=== PATIENT | female | born 1975 | race Caucasian/White ===

== ENCOUNTER 2016-10-11 18:41 | Emergency (ER) | payer BC ==
[~2016-10-11 18:41] MED LIST: ACID CONTROL20 MG PO; ADVIL200 MG; ALBUTEROL17 GM INH; AMOXICILLIN875 MG PO; ATIVAN0.5 MG; ATIVAN1 MG PO; BUSPIRONE HCL30 M1 PO; CELEBREX200 MG; COMPAZINE5 MG; DILAUDID2 MG PO; DULCOLAX10 MG RC; EFFEXOR XR75 MG; EFFEXOR75 MG; EXCEDRIN EXTRA1 EAC2 PO; EXCEDRIN EXTRA1 EAC4 PO; EXCEDRIN MIGRAI1 TAB; EXCEDRIN MIGRAI1 TAB PO; FENTANYL1 PATCH; FOLIC ACID0.8 MG PO; LEVAQUIN750 MG; LEXAPRO20 MG PO; LUNESTA; NASONEX17 GM; NEURONTIN300 MG; NOLVADEX20 MG; NORCO 5/325 TAB1 TAB PO; PEPCID AC10 MG; PERCOCET 5-3251 EACH PO; PERCOCET 5/3251 TAB; PERCOCET 5/3251 TAB PO; PHENERGAN25 MG; PHENERGAN25 MG/SUPP RC; PRENATAL1 EACH PO; PRISTIQ ER100 MG PO; PROTONIX40 MG PO; PROZAC20 MG; SEROQUEL25 M2 PO; SURFAK240 M2 PO; SYMBICORT 16010.2 GM; TRAZODONE50 MG PO; TRINESSA1 TAB; VICODIN 5/500 T1 TAB; VISTARIL50 MG PO; XANAX XR0.5 M1 PO; XANAX0.25 MG PO; ZOFRAN ODT4 MG/UDTAB PO; ZOFRAN4 M2 PO; ZOFRAN4 MG PO; ZOFRAN8 MG; [UNRECOGNIZED DRUG - OTHER]
[2016-10-11] MEDS ORDERED: KEFLEX500 M4 PO (21:45)
[2016-10-11] MEDS ORDERED: NORCO 5-325 TA1 EACH PO (21:49)
== END 2016-10-11 21:49 ==
LOC: EDMED 18:41
PROC: 0HQGXZZ Repair Left Hand Skin, External Approach (ICD-10-PCS; principal; 2016-10-11)
DX: S61.211A Laceration without foreign body of left index finger without damage to nail, initial encounter (principal); W26.0XXA Contact with knife, initial encounter; Y93.G9 Activity, other involving cooking and grilling; Y92.010 Kitchen of single-family (private) house as the place of occurrence of the external cause; Y99.8 Other external cause status